=== PATIENT | male | born 1985 | race African-American/Black ===

== ENCOUNTER 2025-02-11 13:45 | Emergency (ER) | payer MEDICAID ==
[~2025-02-11] VITALS: Ht 170.2 cm; Wt 58.0 kg
[2025-02-11 13:49] VITALS: BP 128/65; PULSE 67; RESP 18; TEMP 36.7; O2SAT 99
[2025-02-11] MEDS: LIDOCAINE HCL/PF 1% 10 MG/ML 5ML VIAL INFIL ONE (14:30)
[2025-02-11 14:54] VITALS: TEMP 98
[2025-02-11] MEDS: ACETAMINOPHEN 325MG TABLET PO ONE (14:54)
[2025-02-11] MEDS: BACITRACIN ZINC OINT UDPKT TOP ONE ×2 (14:54→16:33)
[2025-02-11 15:06] LABS: BASOPHILS % 0.6 % (0.0-2.0); EOSINOPHILS % 3.5 % (0.0-5.0); HEMATOCRIT. 41.1 % (42.0-52.0); HEMOGLOBIN. 13.2 g/dL (14.0-18.0); LYMPHOCYTES % 34.2 % (20.0-50.0); MEAN CORPUSCULAR HEMOGLOBIN 27.1 pg (28.0-32.0); MEAN CORPUSCULAR HGB CONC 32.3 g/dL (31.0-37.0); MEAN CORPUSCULAR VOLUME 83.9 fL (80.0-94.0); MONOCYTES % 9.1 % (2.0-8.0); NEUTROPHILS % 52.6 % (40.0-76.0); PLATELET 214 x1000/uL (130-400); RED BLOOD CELL COUNT 4.89 mill/uL (4.7-6.1); RED CELL DISTRIBUTION WIDTH 13.6 % (11.6-14.6); WHITE BLOOD COUNT 5.2 x1000/uL (4.5-11.0)
[2025-02-11 15:17] LABS: CHLORIDE 107 mEq/L (98-107); INR 1.1; POTASSIUM 3.9 mEq/L (3.5-5.1); PROTHROMBIN TIME 11.4 sec (9.6-11.0); SODIUM 141 mEq/L (136-145)
[2025-02-11 15:18] LABS: CARBON DIOXIDE 30 mEq/L (21-32)
[2025-02-11 15:23] LABS: CREATININE 1.1 mg/dL (0.6-1.3); GLUCOSE 110 mg/dL (70-105); UREA NITROGEN BLOOD 10 mg/dL (9-23)
[2025-02-11 15:24] LABS: TROPONIN I HIGH SENSITIVITY 16 ng/L (3.0-53)
[2025-02-11 16:37] LABS: CLARITY URINE CLEAR (CLEAR); COLOR URINE YELLOW (YELLOW); GLUCOSE URINE NEGATIVE (NEGATIVE); KETONES URINE NEGATIVE (NEGATIVE); LEUKOCYTE ESTERASE URINE NEGATIVE (NEGATIVE); NITRITE URINE NEGATIVE (NEGATIVE); OCCULT BLOOD URINE NEGATIVE (NEGATIVE); PH URINE 7.5 (4.5-8.0); PROTEIN URINE NEGATIVE (NEGATIVE); SPECIFIC GRAVITY URINE 1.006 (1.005-1.030); UROBILINOGEN URINE 0.2 E.U./dL (0.2-1.0)
[2025-02-11] MEDS: TETANUS, DIPHTHERIA, PERTUSSIS VAC/PF 0.5ML (>10YR OLD) IM ONE (17:49)
[2025-02-11] MEDS: LIDOCAINE HCL 1% 20ML VIAL INFIL ONE (17:49)
== END 2025-02-11 18:25 | disposition home or self-care (01) ==
LOC: ER 13:45
DX: S01.81XA Laceration without foreign body of other part of head, initial encounter (principal); S06.9X9A Unspecified intracranial injury with loss of consciousness of unspecified duration, initial encounter; W22.8XXA Striking against or struck by other objects, initial encounter; Y93.55 Activity, bike riding; Y92.89 Other specified places as the place of occurrence of the external cause; Y99.8 Other external cause status
CPT/HCPCS: 80048; 81003; 85025; 85610; 84484; 36415; 71045; 70450; 70486; 72125; 93005; 12011; 99285; J3490; Z7610 ×3; A4606